=== PATIENT | male | born 1965 | race Caucasian/White ===

== ENCOUNTER 2018-03-27 03:59 | Inpatient (IN) | payer BC ==
[2018-03-27] MEDS ORDERED: Fentanyl 100 MCG/2 ML VIAL ONE ×2 (04:36→05:14)
[2018-03-27 06:09] VITALS: BMI 32.3
[2018-03-27] MEDS ORDERED: Ondansetron HCl/PF 4 MG/2 ML Vial IVP PRN ×2 (06:23→08:03)
[2018-03-27] MEDS ORDERED: Ondansetron ODT 4 MG TAB PO PRN ×2 (06:24→08:03)
[2018-03-27] MEDS ORDERED: Sodium Chloride 0.9% 1,000 ML IV SCH (06:30)
[2018-03-27] MEDS: Fentanyl 100 MCG/2 ML VIAL SLOW IVP PRN ×2 (06:32→08:52)
[2018-03-27] MEDS ORDERED: NS 0.9% w/ 20 MEQ KCL 1,000 ML/1,000 ML BAG IV SCH (08:03)
[2018-03-27] MEDS ORDERED: Lorazepam 2 MG/ML VIAL SLOW IVP PRN (08:03)
[2018-03-27] MEDS ORDERED: hydrALAZINE 20 MG/ML VIAL SLOW IVP PRN (08:03)
[2018-03-27] MEDS ORDERED: Chloraseptic Spray 180 ml Bottle PO PRN (08:03)
--- NOTE | 2018-03-27 08:25 | HP ---
PRIMARY CARE PHYSICIAN: Dr. Diego Melton in [place], [place]. CHIEF COMPLAINT: Severe abdominal pain. HISTORY OF PRESENT ILLNESS: Mr. Astorga is a very pleasant 52-year-old gentleman that has a history o f hypertension as well as history of hypothyroidism and history of recurrent diverticulitis, status p ost recent colectomy about 4 months ago. He was in his usual state of health until a couple of days ago, he says he got a stomach virus. He was not that concerned about it because his entire family wa s suffering from it, but then on the day prior to admission, he started having some severe diarrhea. He says he had at least 20 bouts of diarrhea, which was watery, but no blood and then he started fee ling feverish and sweating a lot. Then, he started having a lot of dry heaving. He says he cannot v omit, because he has had a Melania fundoplication and he was receiving over and over and over again an d then suddenly he felt a pop and then is abdomen became extremely distended. This concerned him and for this reason, he went to the emergency room in [place]. A CT scan of the abdomen was obtained a nd it was found that he had findings consistent with a partial small-bowel obstruction and he is bein g admitted for further evaluation. Currently, the patient says he still has pain at about 7/10. The distention has resolved with the placement of an NG tube and he has not had any diarrhea so far. Wh en the pain first started, it was 10/10. Otherwise, the patient does not have any other complaints. He denies any chest pain or shortness of breath, no PND, no orthopnea. He says he does have a histo ry of congenital heart disease, but says he had a recent cardiac catheterization about 2 years ago in which they did notice that he had some anomalous "he says veins", but it was clear. He has never yo d any difficulty with surgery. REVIEW OF SYSTEMS: All systems were reviewed and are negative except for that mentioned in the histo ry of present illness. PAST MEDICAL HISTORY: Significant for hypertension, hypothyroidism, Clemente's esophagus, diverticuli tis and a congenital heart defect. PAST SURGICAL HISTORY: He has had a colectomy as a result of recurrent diverticulitis. He said he h ad 14 inches removed of his large bowel. 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 ALLERGIES: CODEINE and MORPHINE. SOCIAL HISTORY: He is . He has 3 children. He is a nonsmoker. He used to drink occasionall y. FAMILY HISTORY: Significant for diabetes. CURRENT MEDICATIONS: Include Lisinopril 10 mg daily, levothyroxine 50 mcg p.o. daily, amlodipine 5 m g daily, spironolactone 50 mg p.o. daily. PHYSICAL EXAMINATION: GENERAL: He is alert and oriented. He appears to be in no acute distress. He is well-developed and well-nourished. VITAL SIGNS: Blood pressure is 112/86, heart rate 95, respiratory rate of 18, temperature is 99.0. HEENT: His pupils are equal, round, and reactive. Extraocular muscles are intact. Sclerae are anic teric. Throat: There is no erythema, no exudates. NECK: No adenopathy, no bruits. LUNGS: Clear to auscultation. There is no wheezing, no rales. CARDIOVASCULAR: He has a normal S1 and S2. I did not appreciate an S3 or S4. No murmurs, clicks, n o rubs. ABDOMEN: Soft. He has got some diffuse tenderness primarily to the right mid abdomen. There was no rebound, no guarding, no organomegaly. MUSCULOSKELETAL: There is no muscle pains, joint pains or effusions. NEUROLOGIC: His cranial nerves II through XII are intact and his muscle strength is 5/5 in both his upper and lower extremities. SKIN AND INTEGUMENT: He has got some chronic venous stasis changes on the lower leg or some mild hyp erpigmentation, but there is no edema and he has got good dorsalis pedis pulses. There is no rash. Good capillary refill. LABORATORY DATA AND X-RAY FINDINGS: White blood cell count was 11.8, hemoglobin 17.2, hematocrit is 50.7, platelet count was 259. Sodium 135, potassium 5.1, chloride is 105, CO2 is 19, BUN of 19, crea tinine 1.1, glucose is 151. Liver function tests were normal. On his chest x-ray and this is by my reading, his heart size looks slightly enlarged, but he did have an elevation of his left hemidiaphra gm primarily from what appears to be a lot of gas in the stomach. There was no airspace disease. CT scan again was findings consistent with either an ileus or distal small-bowel obstruction and was al so noted he had some avascular necrosis on the left femur. ASSESSMENT AND PLAN: 1. Partial small-bowel obstruction versus ileus. The patient will be left n.p.o. He will continue with NG tube to suction, IV fluids and IV antiemetics as well as IV analgesics with likely a Dilaudid or fentanyl. 2. Hypertension. Since he will be n.p.o., we will treat him symptomatically with p.r.n. hydralazine as needed. 3. Hypothyroidism. He likely can hold his usual Synthroid at least for 2-3 days without a major eff ect. Should he be n.p.o. for much longer, then we can give him IV Synthroid at approximately two-thi rds the dose. 4. Incidental finding of avascular necrosis on the left femur head. This was explained to the patie nt and recommend outpatient orthopedic referral once he is stable from this particular illness and al so Surgery has been consulted from the ER and further recommendations will be as per the General Surg priti team.
[2018-03-27] MEDS: Famotidine/PF 20 mg/2ml Vial SLOW IVP SCH ×2 (09:07→20:41)
[2018-03-27] MEDS ORDERED: Ibuprofen 600 MG TAB PO PRN (11:57)
[2018-03-27] MEDS: Acetaminophen 500 MG TAB PO SCH ×2 (12:10→17:35)
--- NOTE | 2018-03-27 19:05 | CON-2 ---
DATE OF CONSULTATION: 03/27/2018 REQUESTING PHYSICIAN: Kirk Jackson M.D. ATTENDING PHYSICIAN: Twin Chen D.O. HISTORY OF PRESENT ILLNESS: Jarrett Astorga is a 52-year-old male who has a past history of diverticuli tis, status post colectomy approximately 4 months ago as well as a history of Melania fundoplication. The patient states that multiple members in his family have been recently affected by a stomach viru s. On the day prior to admission, the patient had multiple episodes of diarrhea. On the day of admi ssion, he had persistent nausea followed by multiple bouts of dry heaving. Shortly thereafter, his s tomach became acutely distended. He then presented to the [place] emergency room where a CT scan re vealed gastric distention with multiple distended loops of bowel with air fluid levels. The patient was transferred to [facility] for further evaluation and care. An NG tube was placed for de compression. Upon my evaluation this morning, the patient vocalized some abdominal pain and states t hat he last passed flatus approximately 1 hour ago. The patient reports feeling better at this time. ALLERGIES: CODEINE and MORPHINE. CHRONIC MEDICAL ILLNESSES: Include hypertension, hypothyroidism, Clemente's esophagus, diverticulitis and congenital heart disease. PAST SURGICAL HISTORY: Colectomy with reanastomosis, Melania fundoplication, avascular necrosis statu s post repair, right wrist and right hand surgery. SOCIAL HISTORY: with children. Nonsmoker. Occasional alcohol use. FAMILY HISTORY: Diabetes. HOME MEDICATIONS: Include lisinopril 10 mg daily, Synthroid 50 mcg p.o. daily, amlodipine 5 mg daily and spironolactone 50 mg p.o. daily. PHYSICAL EXAMINATION: VITAL SIGNS: On evaluation include temperature 98.3, pulse 96, respiration 20, O2 sat 93% on room ai r, blood pressure 129/80. GENERAL: Well-developed male, in no acute distress, resting in bed. PULMONARY: Normal work of breathing, symmetric rise. CARDIOVASCULAR: Regular rate and rhythm. GASTROINTESTINAL: Abdomen is soft, mild generalized tenderness. No rebound, guarding or rigidity. MUSCULOSKELETAL: Moves all extremities x4. NEUROLOGIC: No focal deficit noted. LABORATORY DATA: WBC 11.8, hemoglobin 17.2, hematocrit 50.7, platelet count 259,000. Sodium 135, po tassium 5.1, chloride 105, carbon dioxide 19, BUN 19, creatinine 1.1, glucose 151. AST and ALT withi n normal limits. RADIOGRAPHIC FINDINGS: CT of the abdomen and pelvis read by Radiology as having multiple areas of th e mid and distal small bowel distended with air fluid levels. No transition point was identified. T here was also evidence of avascular necrosis of the left femoral head. Chest x-ray showed stomach di stention, but no acute cardiopulmonary process. ASSESSMENT: 1. Nausea and vomiting. 2. Gastric distention. 3. Gastroenteritis. 4. History of hypertension. 5. History of hypothyroidism. PLAN: NG tube will be discontinued at this time. The patient may have a clear liquid diet. Discont inue IV pain medications and recommend NSAID, anti-inflammatory for abdominal wall pain, likely secon kacey to multiple episodes of dry heaving and muscle soreness. The patient was seen and evaluated wit maria ines Chen. Plan of care was discussed with the patient and all questions were answered at the time of this dictation. Plan of care was also discussed with Hospital Medicine. We will continue to fol low. There is no acute surgical indication at this time.
[2018-03-27 19:59] LABS: Bilirubin Negative (Negative); Blood, Urine Negative (Negative); Clarity CLEAR (Clear); Glucose, Urine (Dipstick) Negative (Negative); Leukocyte Negative (Negative); Nitrite Negative (Negative); Protein, Urine (Dipstick) Negative (Neg-Trace); Specific Gravity, Urine 1.012 (1.002-1.036); Urobilinogen 0.2 mg/dL (0.2-1.0)
[2018-03-27 20:01] LABS: Bacteria/HPF None Seen HPF (None Seen); Hyaline Casts/LPF 0-3 HYALINE CAST LPF (0-3 Hyaline); RBC/HPF 0-3 HPF (0-3); Squamous Epithelial None Seen HPF (0-3); WBC/HPF 0-3 HPF (0-3)
[2018-03-28] MEDS: Acetaminophen 500 MG TAB PO SCH ×3 (00:10→12:47)
[2018-03-28 06:07] LABS: Anion Gap 10 mmol/L (10-20); BUN (Urea Nitrogen) 9 mg/dL (8.4-25.7); Calc. Creatinine Clearance 159 mL/min (70-130); Carbon Dioxide 23 mmol/L (22-29); Chloride 105 mmol/L (98-107); Estimated GFR-MDRD Greater than 90; Glucose 85 mg/dL (70-105); Potassium 3.9 mmol/L (3.5-5.1); Sodium 134 mmol/L (136-145)
[2018-03-28 06:58] LABS: Band 5 % (5-11); Eosinophils 2 % (0-10); Hemoglobin 14.4 g/dL (14.0-18.0); Lymphocytes 29 % (21-51); MDiff Complete? YES; Mean Corpuscular Hemoglobin 32.7 pg (27.0-31.0); Mean Corpuscular Volume 98.9 fL (78.0-98.0); Mean Platelet Volume 6.4 fL (7.4-10.4); Monocytes 10 % (0-10); Neutrophil 52 % (42-75); Platelet Count 207 thou/uL (130-400); RBC Distribution Width 12.3 % (11.5-14.5); Reactive Lymphocytes 2 % (0-10); Red Blood Cell (RBC) Count 4.41 mill/uL (4.70-6.10); White Blood Cell (WBC) Count 4.5 thou/uL (4.8-10.8)
[2018-03-28] MEDS: Famotidine/PF 20 mg/2ml Vial SLOW IVP SCH (08:52)
[2018-03-28] MEDS ORDERED: Enoxaparin Sodium 40 MG/0.4 ML SYRINGE SC SCH (09:00)
--- NOTE | 2018-03-28 10:20 | PDOC.PN ---
- Subjective Encounter Start Date: 03/28/18 Encounter Start Time: 10:19 CC; Abdominal pain Sub: PT SAYS PAIN CONTROLLED. POSITIVE BOWEL MOVEMENT - Objective Resuscitation Status: Resuscitation Status FULL:Full Resuscitation Vital Signs & Weight: Vital Signs (12 hours) Temp Pulse Resp BP Pulse Ox 03/28/18 08:20 97.4 F L 85 16 132/84 95 03/28/18 08:00 95 03/28/18 00:22 97.9 F 84 18 119/68 96 Weight Weight 252 lb I&O: 03/27/18 03/28/18 03/29/18 06:59 06:59 06:59 Intake Total 480 360 Output Total 1150 Balance -670 360 Result Diagrams: 03/28/18 04:22 03/28/18 04:22 Phys Exam - Physical Examination Constitutional: NAD HEENT: moist MMs Neck: no JVD Respiratory: no wheezing, no rales, no rhonchi Cardiovascular: RRR, no significant murmur, no rub distended, no guarding Musculoskeletal: no edema Neurological: non-focal, moves all 4 limbs Dx/Plan - Plan 1. PSBO 2. Abdominal pain 3. HTN 4. HTN 5. Hyperlipidemia 6. Hypothyroidism PLAN: Improving. continue pain meds will advance diet a stolerated prn pain meds continue bp meds KUB still poistive for PSBO VS Ileus case d/w pt & RN
--- NOTE | 2018-03-28 11:06 | RAD ---
CHEST 1 VIEW AND ABDOMEN 2 VIEWS: Date: 03/28/18 HISTORY: Abdominal pain. FINDINGS: The heart size is normal. No focal areas of consolidation, pneumothoraces, or pleural effusions are s een. There are postop changes of cholecystectomy. No free air is seen. Air is noted in loops of small and large bowel. There are air fluid levels in the small bowel loops. Postop changes of right hip ar throplasty are present. IMPRESSION: Probable partial small bowel obstruction versus ileus. POS: VIVI
[2018-03-28 11:23] VITALS: BP 130/84; TEMP 97.6
--- NOTE | 2018-03-28 13:44 | PDOC.EVN ---
Event Note - Event Note Event Note: [id number] DC SUMMARY DICTATED
--- NOTE | 2018-03-28 23:41 | DIS ---
DATE OF ADMISSION: 03/27/2018 DATE OF DISCHARGE: 03/28/2018 DISCHARGE DIAGNOSES: 1. Partial small-bowel obstruction, resolved. 2. Abdominal pain. 3. History of hypertension. 4. History of hyperlipidemia. 5. History of hypothyroidism. DISCHARGE CONDITION: Stable. DISPOSITION: Home. CONSULTANTS DURING THE HOSPITAL STAY: Surgery. HOSPITAL COURSE: The patient is a 52 years old male. 1. Abdominal pain plus ileus versus partial small-bowel obstruction. The patient was seen by krys l surgeon . Per general surgeon, no surgical intervention and okay to discharge the patient meagan e. The patient had KUB, still showed some ileus, but patient is tolerating liquid diet and having go od bowel movements. So, diet was advanced. If the patient tolerates the diet, then we will go ahead and discharge the patient. 2. Abdominal pain. The patient was treated with pain medications and pain improved at the time of d ischarge. 3. Hypertension. Blood pressure monitored during the hospital stay and was stable. 4. History of hypothyroid, stable. On the day of discharge, please see progress note for physical exam. DISCHAGE CONDITION: Stable. DISPOSITION: Home. Discharge time 35 minutes.
== END 2018-03-28 16:49 | disposition home or self-care (01) | DRG 390 ==
LOC: ERS 03:59 → T4-A 05:06
PROVIDERS: ADMIT Hospitalist; ATTEND Hospitalist
DX: K56.609 Unspecified intestinal obstruction, unspecified as to partial versus complete obstruction (principal); I10 Essential (primary) hypertension; E78.5 Hyperlipidemia, unspecified; E03.9 Hypothyroidism, unspecified; K52.9 Noninfective gastroenteritis and colitis, unspecified
CPT/HCPCS: 36415; 74022; 80048; 81001; 85025; 87086; 96361; 96374; 96376; J1650; J2405; J3010; S0028